=== PATIENT | female | born 1990 | race Two or more races ===

== ENCOUNTER 2024-05-05 22:15 | Emergency (ER) | payer BC ==
[~2024-05-05] VITALS: Ht 160 cm; Wt 64.0 kg
[2024-05-05 23:17] VITALS: BP 129/77; TEMP 98.6; O2SAT 99
== END 2024-05-05 23:18 | disposition home or self-care (01) ==
LOC: ER 22:17
DX: S93.402A Sprain of unspecified ligament of left ankle, initial encounter (principal); S93.602A Unspecified sprain of left foot, initial encounter; Z60.2 Problems related to living alone; X50.1XXA Overexertion from prolonged static or awkward postures, initial encounter; Y93.89 Activity, other specified; Y92.89 Other specified places as the place of occurrence of the external cause; Y99.8 Other external cause status
CPT/HCPCS: 73610-TC